=== PATIENT | female | born 1930 | race Two or more races ===

== ENCOUNTER 2019-05-31 05:30 | Day surgery (SDC) | payer OTHER ==
[~2019-05-31 05:30] MED LIST: FOSAMAX70 MG PO; LEVO-T25 MCG PO; SIMVASTATIN5 MG PO; SINGULAIR10 MG PO; VERELAN240 MG PO
== END 2019-05-31 13:40 | disposition home or self-care (01) ==
LOC: CIR.AMB 05:30
DX: K64.8 Other hemorrhoids (principal); K64.4 Residual hemorrhoidal skin tags